=== PATIENT | male | born 1970 | race Hispanic/Latino ===

== ENCOUNTER 2024-10-29 12:19 | Emergency (ER) | payer SELFPAY ==
[~2024-10-29] VITALS: Ht 170.2 cm; Wt 87.1 kg
[2024-10-29 12:25] VITALS: PULSE 90; RESP 20; TEMP 98.9
[2024-10-29] MEDS ORDERED: ZANAFLEX4 MG PO (13:08)
[2024-10-29] MEDS ORDERED: IBUPROFEN600 MG PO (13:08)
[2024-10-29 13:35] VITALS: BP 167/99; PULSE 80; RESP 20; TEMP 98; O2SAT 98
== END 2024-10-29 13:33 | disposition home or self-care (01) ==
LOC: FSED 12:38
DX: M79.18 Myalgia, other site (principal); M79.602 Pain in left arm; M79.601 Pain in right arm; I10 Essential (primary) hypertension; R73.9 Hyperglycemia, unspecified
CPT/HCPCS: 80053; 81003; 84484; 85025; 93005; 99284